=== PATIENT | female | born 1980 | race Two or more races ===

== ENCOUNTER 2024-10-20 06:17 | Emergency (ER) | payer OTHER, MEDICAID ==
[~2024-10-20] VITALS: Ht 154.9 cm; Wt 70.9 kg
--- NOTE | 2024-10-20 07:08 | ED.PDOC ---
History of Present Illness HPI Comments 44-year-old female the ER with surgical history of gastric sleeve, abdominal bypass in a chief complaint of abdominal pain. Patient reports on having abdominal pain you umbilical region for the past day. Patient notes that she had to pass gas which is more than usual. States that she did take stool soften er. Denies chills, fever, N/V/D, SOB, CP. No other associated symptoms, modifiers, recent injuries or sick contacts present at this time. Chief Complaint: Abdominal Pain Time Seen by MD: 06:40 Reviewed Notes: Nurses Notes, Medications, Allergies Allergies: Coded Allergies: NSAIDs (Verified Allergy, Unknown, 10/20/24) Information Source: Patient Mode of Arrival: Ambulatory Severity: Moderate Timing: Hours Duration: Since onset, Hours Prehospital treatment: None Past Medical History PAST MEDICAL HISTORY: Denies Surgical History (Other): Gastric sleeve, abdominal bypass ATTORNEY History: No Pertinent ATTORNEY History Family History Family History: Reviewed,noncontributory to illness, Unknown Social History Smoker: Non-Smoker Alcohol: Denies ETOH Use Drugs: Denies Drug Use Lives In: Home Constitutional: denies: chills, diaphoresis, fatigue, fever, malaise, sweats, weakness, others EENTM: denies: blurred vision, double vision, ear bleeding, ear discharge, ear drainage, ear pain, ear ringing, eye pain, eye redness, hearing loss, mouth pain, mouth swelling, nasal discharge, nose bleeding, nose congestion, nose pain, photophobia, tearing, throat pain, throat swelling, voice changes, others Respiratory: denies: cough, hemoptysis, orthopnea, SOB at rest, shortness of breath, SOB with excertion, stridor, wheezing, others Cardiovascular: denies: chest pain, dizzy spells, diaphoresis, Dyspnea on exertion, edema, irregular heart beat, left arm pain, lightheadedness, palpitations, PND, syncope, others Gastrointestinal: reports: abdominal pain; denies: abdomen distended, blood streaked bowels, constipated, diarrhea, dysphagia, difficulty swallowing, hematemesis, melena, nausea, poor appetite, poor fluid intake, rectal bleeding, rectal pain, vomiting, others Genitourinary: denies: abnormal vagina bleeding, burning, dyspareunia, dysuria, flank pain, frequency, hematuria, incontinence, pain, , vagina discharge, urgency, others Neurological: denies: dizziness, fainting, headache, left sided numbness, left sided weakness, numbness, paresthesia, pre-existing deficit, right sided numbness, right sided weakness, seizure, speech problems, tingling, tremors, weakness, others Musculoskeletal: denies: back pain, gout, joint pain, joint swelling, muscle pain, muscle stiffness, neck pain, others Integumetry: denies: bruises, change in color, change in hair/nails, dryness, laceration, lesions, lumps, rash, wounds, others Allergic/Immunocompromised: denies: Difficulty Healing, Frequent Infections, Hives, Itching, others Hematologic/Lymphatic: denies: anemia, blood clots, easy bleeding, easy bruising, swollen glands, others Endocrine: denies: excessive hunger, excessive sweating, excessive thirst, excessive urination, flushing, intolerance to cold, intolerance to heat, unexplained weight gain, unexplained weight loss, others Psychiatric: denies: anxiety, bipolar disorder, depression, hopeless, panic disorder, schizophrenia, sleepless, suicidal, others All Other Systems: Reviewed and Negative Physical Exam General Appearance: No Apparent Distress, Normal HEENT: Normal ENT Inspection, Pharynx Normal, TMs Normal Neck: Full Range of Motion, Non-Tender, Normal, Normal Inspection Respiratory: Chest Non-Tender, Lungs Clear, No Accessory Muscle Use, No Respiratory Distress, Normal Breath Sounds Cardiovascular: No Edema, No JVD, No Murmur, No Gallop, Normal Peripheral Pulses, Regular Rate/Rhythm Breast Exam: Deferred Gastrointestinal: No Organomegaly, Non Tender, No Pulsatile Mass, Normal Bowel Sounds, Soft Genitalia: Deferred Pelvic: Deferred Rectal: Deferred Extremities: No calf tenderness, Normal capillary refill, Normal inspection, Normal range of motion, Non-tender, No pedal edema Musculoskeletal : Apperance: Normal Neurologic: Alert, 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 Was a procedure done?: No Differential Dx Considerations may include: GERD gastritis, electrolyte abnormalities, acute appendicitis, Crohn's disease X-Ray, Labs, Meds, VS Vital Signs Date Time Temp Pulse Resp B/P (MAP) Pulse Ox O2 Delivery O2 Flow Rate FiO2 10/20/24 08:30 84 20 96 Room Air* 0 21 10/20/24 07:49 80 16 110/72 10/20/24 07:19 62 19 115/77 10/20/24 07:01 98.3 62 19 115/77 (90) 98.3 10/20/24 06:45 98.0 68 20 113/64 (80) 99 98.0 Lab Test 10/20/24 07:12 10/20/24 06:40 Range/Units White Blood Count 7.9 4.4-10.8 10^3/uL Red Blood Count 4.66 4.0-5.20 10^6/uL Hemoglobin 12.7 12.2-16.2 g/dL Hematocrit 39.2 36.0-46.0 % Mean Corpuscular Volume 84.1 80.0-100.0 fL Mean Corpuscular Hemoglobin 27.2 L 28.0-32.0 pg Mean Corpuscular Hemoglobin Concent 32.4 32.0-36.0 g/dL Red Cell Distribution Width 15.2 H 11.8-14.3 % Platelet Count 268 140-450 10^3/uL Mean Platelet Volume 9.1 6.9-10.8 fL Neutrophils (%) (Auto) 57.0 37.0-80.0 % Lymphocytes (%) (Auto) 33.6 10.0-50.0 % Monocytes (%) (Auto) 5.4 0.0-12.0 % Eosinophils (%) (Auto) 3.5 0.0-7.0 % Basophils (%) (Auto) 0.5 0.0-2.0 % Neutrophils # (Auto) 4.5 1.6-8.6 10 ^3/uL Lymphocytes # (Auto) 2.7 0.4-5.4 10 ^3/uL Monocytes # (Auto) 0.4 0-1.3 10 ^3/uL Eosinophils # (Auto) 0.3 0-0.8 10 ^3/uL Basophils # (Auto) 0 0-0.2 10 ^3/uL Nucleated Red Blood Cells 0.0 % Sodium Level 142 136-145 mmol/L Potassium Level 3.0 L 3.5-5.1 mmol/L Chloride Level 105 98-107 mmol/L Carbon Dioxide Level 29 20-31 mmol/L Anion Gap 8 5-15 Blood Urea Nitrogen 10 9-23 mg/dL Creatinine 0.62 0.550-1.02 mg/dL Glomerular Filtration Rate Calc 113 >90 mL/min BUN/Creatinine Ratio 16.1 10.0-20.0 Serum Glucose 78 74-106 mg/dL Calcium Level 8.8 8.7-10.4 mg/dL Total Bilirubin 0.9 0.2-1.0 mg/dL Aspartate Amino Transferase (AST) 23 13-40 U/L Alanine Aminotransferase (ALT) 26 7-40 U/L Alkaline Phosphatase 66 46-116 U/L Total Protein 7.0 5.7-8.2 g/dL Albumin 4.3 3.2-4.8 g/dL Lipase 28 12-53 U/L Urine Color Light-yellow Yellow Urine Clarity Clear Clear Urine pH 5.5 5.0-9.0 Urine Specific [place] 1.009 1.001-1.035 Urine Protein Negative Negative Urine Ketones Negative Negative Urine Blood Negative Negative /uL Urine Nitrite Negative Negative Urine Bilirubin Negative Negative Urine Urobilinogen Normal Negative mg/dL Urine Leukocyte Esterase Negative Negative /uL Urine RBC None seen 0 - 4 /hpf Urine Microscopic WBC 2 0-5 /HPF Urine Squamous Epithelial Cells Few <5 /hpf Urine Bacteria None seen None Seen /hpf Urine Glucose Normal Normal mg/dL Current Medications Medications (Trade) Dose Ordered Sig/Opal Route Start Time Stop Time Status Last Admin Sodium Chloride 1,000 ml @ 1,000 mls/hr Q1H ONCE IV 10/20/24 06:45 10/20/24 07:44 DC 10/20/24 07:19 Ondansetron HCl (Zofran) 4 mg ONCE ONCE IV 10/20/24 06:45 10/20/24 06:46 DC 10/20/24 07:19 Morphine Sulfate 4 mg ONCE ONCE IV 10/20/24 06:45 10/20/24 06:46 DC 10/20/24 07:19 Famotidine (Pepcid Injection) 20 mg ONCE ONCE IV 10/20/24 06:45 10/20/24 06:46 DC 10/20/24 07:19 Time of 1ST Reevaluation: 07:10 Reevaluation 1ST: Unchanged Patient Education/Counseling: Diagnosis, Treatment, Prognosis Family Education/Counseling: No Family Present SEPSIS Sepsis Screen Date sepsis recognized/suspect: Oct 20, 2024 Time Sepsis recognized/suspect: 0646 Recent Procedure: No On Antibiotic Therapy: No Respiratory Rate >20: No Heart Rate >90: No Temp<36 C (96.8 F) or >38.3 C: No SBP <90 or MAP <65 mmHG: No New Acute Mental Status Change: No Is the patient on CPAP, BIPAP,: No Physician Orders Chest Portable (10/20/24 06:40) Ct Ab Pel With Iv Con Only (10/20/24 06:40) Vital Signs Date Time Temp Pulse Resp B/P (MAP) Pulse Ox O2 Delivery O2 Flow Rate FiO2 10/20/24 08:30 84 20 96 Room Air* 0 21 10/20/24 07:49 80 16 110/72 10/20/24 07:19 62 19 115/77 10/20/24 07:01 98.3 62 19 115/77 (90) 98.3 10/20/24 06:45 98.0 68 20 113/64 (80) 99 98.0 Laboratory Tests Test 10/20/24 07:12 White Blood Count 7.9 10^3/uL (4.4-10.8) Medications Medications Dose Ordered Sig/Opal Route Start Time Stop Time Status Last Admin Dose Admin Famotidine 20 mg ONCE ONCE IV 10/20/24 06:45 10/20/24 06:46 DC 10/20/24 07:19 Morphine Sulfate 4 mg ONCE ONCE IV 10/20/24 06:45 10/20/24 06:46 DC 10/20/24 07:19 Ondansetron HCl 4 mg ONCE ONCE IV 10/20/24 06:45 10/20/24 06:46 DC 10/20/24 07:19 Sodium Chloride 1,000 ml @ 1,000 mls/hr Q1H ONCE IV 10/20/24 06:45 10/20/24 07:44 DC 10/20/24 07:19 Departure 1 Departure Time of Disposition: 09:39 (Patient presented with abdominal pain that was concerning for possible appendicits, gastritis, cholecystitis, colitis, gastroenteritis, or orther possible surgical emergency. Data: 1. I ordered and reviewed the result of at least 3 labs including a CBC, BMP, and Urinalysis. 2. I independently interpreted the following tests: CT Abdoment and Pelvis is conc erning for gastroenteritis .Risk:This patient has a high risk of morbidity due to further diagnostic testing or treatment and may suffer from an acute abdominal process disorder. Fortunately workup reveals likely gastroenteritis and ovarian cysts and patient can be safely discharged to home with outpatient follow up.) Impression: Primary Impression: Abdominal pain Qualified Codes: R10.84 - Generalized abdominal pain Additional Impression: Adnexal cyst Disposition: HOME / SELF CARE / HOMELESS Condition: Stable Additional Instructions: Your CT scan was benign other than an ovarian cyst. Your blood work was benign. You can take Tylenol as needed for pain. It is important to follow up with the regular doctor next week to ensure you are doing well. Discharged With: Self Critical Care Note Critical Care Time?: No Stability Stability form required: No I personally scribed for TOAN CABELLO MD ([email or web address]) on 10/20/24 at 07:08. Electronically submitted by Fredo Archibald ([email or web address]). TOAN CABELLO MD Oct 20, 2024 07:08
[2024-10-20] MEDS: ONDANSETRON HCL 4 MG/2 ML VIAL IV ONE (07:19)
[2024-10-20] MEDS: SODIUM CHLORIDE 0.9% 1,000 ML IV ONE (07:19)
[2024-10-20] MEDS: FAMOTIDINE (10MG/ML) 2ML VL IV ONE (07:19)
[2024-10-20] MEDS: MORPHINE SULFATE 4 MG/ML SYR/VIAL IV ONE (07:19)
[2024-10-20 07:39] LABS: Alanine Aminotransferase 26 U/L (7-40); Alkaline Phosphatase 66 U/L (46-116); Anion Gap 8 (5-15); BUN/Creatinine Ratio 16.1 (10.0-20.0); Blood Urea Nitrogen 10 mg/dL (9-23); Calcium 8.8 mg/dL (8.7-10.4); Carbon Dioxide 29 mmol/L (20-31); Chloride 105 mmol/L (98-107); Glucose 78 mg/dL (74-106); Hematocrit 39.2 % (36.0-46.0); Hemoglobin 12.7 g/dL (12.2-16.2); Lipase 28 U/L (12-53); Mean Corpuscular Hemoglobin 27.2 pg (28.0-32.0); Mean Corpuscular Volume 84.1 fL (80.0-100.0); Nucleated Red Blood Cells % 0.0 %; Sodium 142 mmol/L (136-145); Total Protein 7.0 g/dL (5.7-8.2)
[2024-10-20 07:40] LABS: Albumin 4.3 g/dL (3.2-4.8); Bilirubin, Total 0.9 mg/dL (0.2-1.0); Potassium 3.0 mmol/L (3.5-5.1)
[2024-10-20 07:59] LABS: Urine Protein, UAD Negative (Negative)
--- NOTE | 2024-10-20 08:13 | DVH ---
CLINICAL INFORMATION: Right lower quadrant pain. TECHNIQUE: Single AP portable chest radiograph was obtained. COMPARISON: None FINDINGS: Lungs: Clear. Cardiac: Heart size is within normal limits. Pulmonary vasculature: Unremarkable. Mediastinum/dyana: Unremarkable. Bones: No acute osseous abnormality identified. Other: No other significant findings. IMPRESSION: No evidence of acute disease in the chest.
[2024-10-20] MEDS: IOHEXOL 300 MG/ML 100ML BOTTLE IJ ONE (08:14)
--- NOTE | 2024-10-20 08:29 | DVH ---
Exam: CT CT AB PEL WITH IV CON ONLY History: rlq pain Comparison Study: None Contrast: Type of contrast: Omnipaque 300 Contrast injected: 100 mL Contrast wasted: 0 TECHNIQUE: CT scan of the abdomen pelvis performed with intravenous contrast. Coronal and sagittal r eformatted images are provided. Radiation Dose Information: CT Dose: CTDI volume is 11.9 mGy. Dose-length product is 532.22 mGy*cm FINDINGS: Lung Bases: No acute or significant lung base finding. Normal heart size. No pleural or pericardial effusion. Liver: The liver is enlarged measuring 21.5 cm. No focal lesions. Normal hepatic vascular enhancemen t. Gallbladder and Biliary Tree: The gallbladder is unremarkable. No biliary ductal dilatation. Spleen: Unremarkable Pancreas: The pancreas is normal in appearance without focal lesions or abnormal enhancement. Adrenal Glands: Unremarkable Kidneys: Kidneys demonstrate normal symmetric enhancement without focal lesions, calculi or hydroneph rosis. Bladder: Unremarkable Bowel: Postsurgical changes in the stomach. Small hiatal hernia The small bowel is unremarkable. Sc attered stool throughout the colon. The appendix is visualized and is normal. Ascites: Absent Lymphadenopathy: No mesenteric, retroperitoneal or periportal lymphadenopathy. Abdominal Wall and Mesentery: Unremarkable. Vasculature: The visualized abdominal aorta is normal in size and caliber. Abdominal and pelvic vess els demonstrate normal enhancement. Pelvic Organs: The uterus is unremarkable. There is a 2.4 cm left adnexal cystic lesion. Musculoskeletal: There is intervertebral disc space narrowing at L5-S1. No aggressive focal bony lesi ons, acute fractures or dislocation. Soft tissues: Unremarkable. IMPRESSION: 1. No acute abnormality in the abdomen or pelvis. 2. 2.4 cm left adnexal cystic lesion. All CT scans at this medical facility are performed using dose modulation techniques as appropriate t o a performed exam including the following: Automated exposure control was utilized; adjustment of th e MA and/or KV according to patient size; and use of iterative reconstruction technique.
[2024-10-20 08:30] VITALS: PULSE 84; RESP 20; O2SAT 96
[2024-10-20 09:27] VITALS: BP 118/67; PULSE 54; RESP 18; TEMP 97.5; O2SAT 100
[2024-10-20] MEDS ORDERED: OXYC-900 PO (09:42)
== END 2024-10-20 09:57 | disposition home or self-care (01) ==
LOC: ER 06:17
DX: N83.8 Other noninflammatory disorders of ovary, fallopian tube and broad ligament (principal); R10.9 Unspecified abdominal pain; Z98.84 Bariatric surgery status; Z88.6 Allergy status to analgesic agent
CPT/HCPCS: 36415; 71045; 74177; 80053; 81001; 83690; 85025; 96361; 96374; 96375; 99285; J2270; J2405; J3490; J7030; Q9967